=== PATIENT | female | born 1960 | race Caucasian/White ===

== ENCOUNTER 2019-03-23 16:38 | Observation (INO) | payer MEDICAID ==
[~2019-03-23] VITALS: Ht 167.6 cm; Wt 84.0 kg
[2019-03-23 17:07] LABS: BASOPHILS % (AUTO) 0.4 % (0-1); EOSINOPHILS % (AUTO) 0.8 % (0-6); HEMATOCRIT 38.8 % (35.0-45.0); HEMOGLOBIN 12.9 g/dl (12.0-16.0); LYMPHOCYTES # (AUTO) 1.1 X10'3 (1.1-4.8); LYMPHOCYTES % (AUTO) 24.1 % (21-51); MEAN CORPUSCULAR HGB CONC 33.3 g/dL (33.0-36.5); MEAN CORPUSCULAR VOLUME 90.1 FL (78-98); MEAN PLATELET VOLUME 8.2 FL (7.4-10.4); MONOCYTES # (AUTO) 0.5 X10'3 (0-0.9); MONOCYTES % (AUTO) 10.7 % (2-12); NEUTROPHILS # (AUTO) 2.9 X10'3 (1.8-7.7); PLATELET COUNT 206 X10'3 (140-440); RED CELL DISTRIBUTION WIDTH 14.2 % (11.5-14.5); WHITE BLOOD COUNT 4.5 X10'3 (4.5-11.0)
[2019-03-23 17:12] LABS: PARTIAL THROMBOPLASTIN TIME 29 SECONDS (22-32)
[2019-03-23 17:16] LABS: ALANINE AMINOTRANSFERASE 18 U/L (12-78); ALBUMIN 3.8 G/DL (3.4-5.0); ALBUMIN/GLOBULIN RATIO 1.2 (1.1-1.5); ALKALINE PHOSPHATASE 106 IU/L (46-116); ANION GAP 5 (8-16); ASPARTATE AMINO TRANSFERASE 14 U/L (10-37); BILIRUBIN,TOTAL 0.2 MG/DL (0.1-1.0); BLOOD UREA NITROGEN 25 MG/DL (7-18); BUN/CREATININE RATIO 27.8 (6.6-38.0); CALCIUM 9.2 MG/DL (8.5-10.1); CHLORIDE 106 MMOL/L (99-107); GLUCOSE 107 MG/DL (70-104); POTASSIUM 4.6 MMOL/L (3.5-5.1); SODIUM 140 MMOL/L (135-145); TOTAL PROTEIN 7.1 G/DL (6.4-8.2); eGFR 64 ML/MIN
[2019-03-23] MEDS ORDERED: PREG150C PO (18:58)
--- NOTE | 2019-03-23 18:58 | NUR ---
PT AWAITING HOSPITALIST. SHE HAS CHRONIC BACK PAIN AND REQUESTS HER DOSE OF OXYCODONE 15 MG Q3-4 HR PRN. STATES LAST TAKEN THIS AM AND PAIN NOW [address] ARNDT UPDATED AND VERBAL RECEIVED FOR MSIV 4 [id number]. PT AGREEABLE TO THIS PLAN.
[2019-03-23] MEDS ORDERED: ONDA4TAB6 PO (18:59)
[2019-03-23] MEDS ORDERED: morphine 4 MG/ML inj SYRINge IV ONE (19:00)
[2019-03-23] MEDS ORDERED: LISI10TA4 PO (19:01)
[2019-03-23] MEDS ORDERED: METO25TA6 PO (19:02)
[2019-03-23] MEDS ORDERED: OXYC-658 PO (19:04)
[2019-03-23] MEDS ORDERED: CYCL-394 PO (19:10)
[2019-03-23] MEDS ORDERED: PANT40TA4 PO (19:11)
[2019-03-23] MEDS ORDERED: mag hydrox/Alum hydrox/simeth 30ml oral suspension PO PRN (19:20)
[2019-03-23] MEDS ORDERED: morphine 2 MG/ML inj. syringe IV PRN (19:20)
[2019-03-23] MEDS ORDERED: ondansetron/PF 4mg/2ml inj IV PRN (19:20)
[2019-03-23] MEDS ORDERED: acetaminophen 325mg tablet PO PRN (19:20)
[2019-03-23] MEDS ORDERED: magnesium hydroxide 30ml (MOM) UD suspension PO PRN (19:20)
--- NOTE | 2019-03-23 20:40 | NUR ---
report rec'd from macho Gonzales. in ED. Pt is up to the floor and able to ambulate to bed from [facility]. Pt is here for cardiac observation and Stress Test in the AM.
[2019-03-23 20:45] VITALS: BP 144/86
[2019-03-23 21:58] LABS: HEMOGLOBIN A1C 5.6 % (4.5-6.2)
[2019-03-23] MEDS ORDERED: MELA3TAB64 PO (22:22)
[2019-03-23] MEDS ORDERED: TRAZ-251 PO (22:22)
[2019-03-23] MEDS ORDERED: Melatonin 3mg tablet PO ONE (22:36)
[2019-03-23] MEDS ORDERED: traZODone 50mg tablet PO ONE (22:40)
[2019-03-23] MEDS ORDERED: metoprolol tartrate 1mg/ml inj IV PRN (22:45)
[2019-03-23] MEDS ORDERED: aminophylline 250mg/10ml inj. IV PRN (22:45)
[2019-03-23] MEDS ORDERED: nitroGLYCERIN 0.4mg SUBLingual tab SL PRN (22:45)
[2019-03-23] MEDS: morphine 2 MG/ML inj. syringe IV PRN (23:06)
[2019-03-24] VITALS (9 sets, daily range): BP systolic 87–130; BP diastolic 60–82
[2019-03-24] MEDS: morphine 2 MG/ML inj. syringe IV PRN (03:15)
--- NOTE | 2019-03-24 05:10 | NUR ---
REPEAT EKG PERFORMED; NORMAL SINUS RHYTHM, NO CHANGE FROM PRIOR.
[2019-03-24 06:21] LABS: CHOLESTEROL 99 MG/DL (0-200); HDL CHOLESTEROL 20 MG/DL (35-60); LDL CHOLESTEROL 66 MG/DL (50-100); TRIGLYCERIDES 109 MG/DL (20-135)
--- NOTE | 2019-03-24 06:24 | NUR ---
Report given to macho Gould.
[2019-03-24] MEDS: oxyCODONE IR 5mg (immed. release) tablet PO PRN ×2 (07:42→12:25)
[2019-03-24] MEDS ORDERED: lisinopril 10 MG tablet PO SCH (08:00)
[2019-03-24] MEDS ORDERED: ondansetron 4mg rapidly disintigrating tab PO PRN (08:00)
[2019-03-24] MEDS ORDERED: pantoprazole 40mg Tablet.DR PO SCH (08:00)
[2019-03-24] MEDS: regadenoson 0.4mg/5ml syringe IV PRN ×2 (09:17→09:24)
[2019-03-24] MEDS ORDERED: ASPI81TA30 PO (12:22)
--- NOTE | 2019-03-24 14:42 | NUR ---
Dr Peterson: PAGER ID: [phone] MESSAGE: [phone] Arelis [place]. awaiting DC orders. pt ride is here, they have a 4+ hour drive to destination. Hoping for DC soon. Thank you, Bryanna [phone]
--- NOTE | 2019-03-24 15:30 | NUR ---
DISCHARGE: VSS, RR even/unlabored, HRR, Denies CP, SOB, resp distress, N/V, vertigo at DC. No new skin issues. All necessary DC documents signed, recap of pt stay w/pt. Pt escorted PHYLLIS via WC by [facility] staff. Transferred safely into personal vehicle. pt thanked [facility] staff for her care.
[2019-03-24] MEDS ORDERED: Melatonin 3mg tablet PO SCH (21:00)
[2019-03-24] MEDS ORDERED: cyclobenzaprine 10mg tablet PO SCH (21:00)
[2019-03-24] MEDS ORDERED: traZODone 50mg tablet PO SCH (21:00)
[2019-03-24] MEDS ORDERED: pregabalin 75mg capsule PO SCH (21:00)
== END 2019-03-24 15:30 | disposition home or self-care (01) ==
LOC: ER 16:38 → ED HOLD 19:48 → ORTHO 4S 20:50
PROVIDERS: ADMIT Internal Medicine; ATTEND Hospitalist
DX: R07.89 Other chest pain (principal); I10 Essential (primary) hypertension; I25.2 Old myocardial infarction; I25.10 Atherosclerotic heart disease of native coronary artery without angina pectoris; G89.29 Other chronic pain; G47.00 Insomnia, unspecified; Z90.49 Acquired absence of other specified parts of digestive tract; Z90.710 Acquired absence of both cervix and uterus; Z79.899 Other long term (current) drug therapy
CPT/HCPCS: 36415; 71045; 78452; 80053; 80061; 83036; 83880; 84484; 85025; 85610; 85730; 87081; 93005; 93017; 96374; 96376; 99284; A9500; G0378; J0280; J2270; J2785